=== PATIENT | female | born 1990 | race Caucasian/White ===

== ENCOUNTER 2017-01-19 14:29 | Emergency (ER) | payer MEDICAID ==
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
[2017-01-19] MEDS ORDERED: OLANZapine 10 MG/2 ML VIAL IM ONE (15:06)
[2017-01-19 16:03] LABS: % IMMATURE GRANULYOCYTES 0.2 % (0.0-1.1); ABSOLUTE IMMATURE GRANULOCYTES 0.02 10^3/uL (0.00-0.10); ADD DIFF? NO; ADD MORPH? NO; ADD SCAN? NO; ATYPICAL LYMPHOCYTE FLAG 0 (0-99); FRAGMENT RBC FLAG 0 (0-99); HEMATOCRIT 47.4 % (38.0-47.0); HEMOGLOBIN 16.5 g/dL (12.6-16.3); LEFT SHIFT FLG 0 (0-99); LIPEMIA HEMOLYSIS FLAG 90 (0-99); MEAN CELL HEMOGLOBIN 33.3 pg (27.9-34.1); MEAN CELL HEMOGLOBIN CONCENTR. 34.8 g/dL (32.4-36.7); MEAN CELL VOLUME 95.8 fL (81.5-99.8); MEAN PLATELET VOLUME 9.3 fL (8.7-11.7); PLATELET CLUMPS FLAG 0 (0-99); PLATELET COUNT 204 10^3/uL (150-400); RED BLOOD CELL COUNT 4.95 10^6/uL (4.18-5.33)
[2017-01-19 16:51] LABS: ANION GAP 18 mEq/L (8-16); CALCIUM 9.8 mg/dL (8.5-10.4); CARBON DIOXIDE 17 mEq/l (22-31); CHLORIDE 104 mEq/L (97-110); CREATININE 0.8 mg/dL (0.6-1.0); ETHANOL SERUM < 10 mg/dL (0-10); GLOMERULAR FILTRATION RATE > 60; GLUCOSE 85 mg/dL (70-100); POTASSIUM 3.9 mEq/L (3.5-5.2); SODIUM 139 mEq/L (134-144)
[2017-01-19] MEDS ORDERED: NS 1,000 ML IV ONE (17:00)
[2017-01-19 22:00] VITALS: BP 99/60; PULSE 93; RESP 18; TEMP 98.4; O2SAT 96
== END 2017-01-19 21:57 | disposition home or self-care (01) ==
LOC: EDUNIT#
DX: F19.10 Other psychoactive substance abuse, uncomplicated (principal); F17.200 Nicotine dependence, unspecified, uncomplicated
CPT/HCPCS: G0480

== ENCOUNTER 2017-07-13 08:59 | Inpatient (IN) | payer MEDICAID, OTHER ==
[2017-07-13] MEDS ORDERED: OLANZapine DISINTEGR 5 MG TAB PO ONE (09:48)
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
[2017-07-13 11:32] LABS: PLATELET COUNT 221 10^3/uL (150-400)
[2017-07-16] MEDS ORDERED: MAG HYDROX/AL HYDROX/SIMETH 30 ML UDCUP PO PRN (13:46)
[2017-07-16] MEDS ORDERED: MAGNESIUM HYDROXIDE 30 ML UDCUP PO PRN (13:46)
[2017-07-16] MEDS ORDERED: ACETAMINOPHEN 325 MG TAB PO PRN (13:46)
[2017-07-16] MEDS ORDERED: PROMETHAZINE HCL 25 MG SUPPR PR PRN (13:48)
[2017-07-16] MEDS ORDERED: IBUPROFEN 600 MG TAB PO PRN (13:48)
[2017-07-16] MEDS ORDERED: LOPERAMIDE HCL 2 MG CAP PO PRN (13:48)
[2017-07-16] MEDS ORDERED: PROMETHAZINE HCL 25 MG TAB PO PRN (13:48)
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
[2017-07-16] MEDS: PARoxetine HCL 10 MG TAB PO SCH (20:46)
--- NOTE | 2017-07-17 08:08 | SOAPPROG ---
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 Patient has restricted affect and requesting assistance in obtaining residential GENE treatment (not covered by Medicaid) No current alcohol or opioid withdrawal symptoms except occasional yawning, scored 2,3 on COWS. Plan: Patient agrees to voluntary treatment Continue Paxil 10mg QHS for depression and PTSD. Discussed risk of defects, miscarriage, bleeding, agitation, SI, bipolar disorder, hyponatremia, drug interactions Discontinue COWS Requested CC contact Medicaid and [facility] regarding respite bed and GENE treatment options SP1-monitor risk of self harm and mood Reviewed handout on Naltrexone for alcohol cravings and preventing relapse on opioids. Patient reports last oxycodone use 72-96 hours ago. Discussed risk of nausea, hepatitis, opioid withdrawal, and blockade of opioid medications. Patient reports she will review handout. 07/17/17 08:13 Subjective: CC: "I need rehab to get off meth" Patient reports feeling depressed and tired today related to homelessness and " I cant function because of the depression and the drugs." Reports using oxycodone, drinking alcohol, and using methamphetamine prior to ER visit. Reports tolerating Paxil without side effects. Reports thoughts of and suicide only when thinking about being homeless and alone. Denies plan/intent to harm self on unit. Denies racing thoughts, irritability, or agitation. Denies nausea, tremors, sweats, chills. Patient reports court hearing for DUI and other charges, is in early July. Reports previously attending an intake appointment at [facility] but 1st individual therapy appointment was scheduled for today 07/17/17. Objective: Vital Signs Temp Pulse Resp BP Pulse Ox 36.8 C 74 14 97/56 L 95 07/17/17 06:00 07/17/17 06:00 07/17/17 06:00 07/17/17 06:00 07/17/17 06:00 Patient attending some groups. Slept overnight. COWS scores 2,3 yesterday. Alert WF with glasses and tattoos. Guarded with evasive, circumstantial answers. Speech soft, RRR, few words. Mood 'depressed because I can't function when I'm doing drugs, I have no place to go.' Affect restricted. Reports thoughts of and suicide when thinking about homelessness but denies plan or intent to harm self. No evident delusions or AH. Insight limited. Judgment questionable. - Time Spent With Patient Time Spent With Patient: 30 minutes - Pending Discharge Pending Discharge Within 24 Hours: No Pending Discharge Within 48 Hours: Yes Pending Discharge Date: 07/19/17 Pending Discharge Time: 11:00 ICD10 Worksheet Patient Problems: Problems Problem Status Onset Legal problem Acute Methamphetamine use disorder, moderate Acute Personality disorder Acute Posttraumatic stress disorder Acute Substance or medication-induced depressive disorder Acute Suicidal behavior with attempted self-injury Acute
[2017-07-17] MEDS ORDERED: hydrOXYzine HCL 25 MG TAB PO PRN (10:26)
[2017-07-17] MEDS: NICOTINE POLACRILEX 2 MG GUM B PRN (10:58)
[2017-07-17 13:47] LABS: GC AMPLIFICATION GENPROBE POSITIVE (NEGATIVE)
[2017-07-17] MEDS ORDERED: AZITHROMYCIN 250 MG TAB PO ONE (15:54)
[2017-07-17] MEDS ORDERED: cefTRIAXone 250 MG VIAL IM ONE (15:54)
--- NOTE | 2017-07-17 16:02 | SOAPPROG ---
SOAP Progress Note Assessment/Plan: Assessment: Gonorrhea. * Will treat with single dose of IM ceftriaxone 250 mg and single dose of oral azithromycin 1000 mg. * Test for HIV. * Hold hydroxyzine today due to interaction with azithromycin, with risk for prolonged QT interval. 07/17/17 16:01 Subjective: Labs reviewed. Objective: Vital Signs Temp Pulse Resp BP Pulse Ox 36.8 C 74 14 97/56 L 95 07/17/17 06:00 07/17/17 06:00 07/17/17 06:00 07/17/17 06:00 07/17/17 06:00 ICD10 Worksheet Patient Problems: Problems Problem Status Onset Legal problem Acute Methamphetamine use disorder, moderate Acute Personality disorder Acute Posttraumatic stress disorder Acute Substance or medication-induced depressive disorder Acute Suicidal behavior with attempted self-injury Acute
[2017-07-17] MEDS: PARoxetine HCL 10 MG TAB PO SCH ×2 (20:40→21:33)
[2017-07-18] MEDS ORDERED: PROPRANOLOL HCL 10 MG TAB PO PRN (08:22)
[2017-07-18] MEDS ORDERED: PARoxetine HCL 10 MG TAB PO SCH (13:26)
--- NOTE | 2017-07-18 13:44 | SOAPPROG ---
SOAP Progress Note Assessment/Plan: Assessment: Stimulant Related Depressive Disorder Post-Traumatic Stress Disorder Alcohol, Stimulant, Opioid Use Disorders Homeless, no income, legal stressors (reports court hearing early July 2017), no supports Malingering to obtain MH/GENE services and avoid homelessness Patient admitted for SI in context of substance abuse, homelessness, and pending court hearing for DUI and other charges. Patient has restricted affect and requesting assistance in obtaining residential GENE treatment (not covered by Medicaid) or respite bed (none available). No current alcohol or opioid withdrawal symptoms. Recent treatment at [facility] ([phone]) and [facility] in [place]. Patient reports excessive sedation from 10mg Paxil, may be slow metabolizer or prone to fatigue related to methamphetamine withdrawal. Plan: Patient agrees to voluntary treatment Discontinue Paxil. Start Zoloft 12.5mg (1/2 of 25mg) for depression and PTSD. Reviewed ABDI handout, discussed risk of GI side effects, defects, miscarriage, bleeding, drug interactions, suicidal thoughts, bipolar disorder, agitation Discharge in AM with referrals back to [facility] [phone] and [facility] [phone] Discussed no sexual contact with others until re-tested for Gonorrhea and getting baseline HIV testing at a primary care office Discharge in AM; patient contacting Tamera Cleveland regarding car and will get nursing home information, CC will assist in helping patient get transportation to a nursing home, [facility] respite bed (if available tomorrow), or indigent GENE treatment program. 07/18/17 13:56 Subjective: CC: "Worried about where I'm going to go" Patient reports refusing Paxil due to fear of excessive sedation after feeling tired yesterday AM. Reports wanting residential substance abuse treatment even though she has no way to pay for residential GENE treatment and Medicaid doesn't cover GENE treatment. Reports in past year getting MH services and respite at [facility] and getting medical care at [facility], both in [place]. Reports previous MH treatment at [facility] in [place] with [facility] involvement several years ago. Reports anxiety and depression regarding homelessness and lack of financial resources and supports. Reports chronic anxiety and wants medication for anxiety but reports Buspar was excessively sedating. Objective: Vital Signs Temp Pulse Resp BP Pulse Ox 37.1 C 74 14 120/60 98 07/18/17 06:30 07/18/17 06:30 07/18/17 06:30 07/18/17 06:30 07/18/17 06:30 Alert WF with tattoos and glasses. Speech RRR. Circumstantial vague and evasive. Mood 'anxious about where I am going to go.' Affect restricted. Thoughts organized. SI only when homeless. No HI, AH or psychotic content. Insight fair. Judgment appropriate regarding needing GENE treatment. Everett Castaneda reports no available respite beds tonight. CC reports patient calling a indigent GENE treatment program for women in [place]. - Time Spent With Patient Time Spent With Patient: 30 minutes - Pending Discharge Pending Discharge Within 24 Hours: Yes Pending Discharge Within 48 Hours: No Pending Discharge Date: 07/19/17 Pending Discharge Time: 11:00 ICD10 Worksheet Patient Problems: Problems Problem Status Onset Legal problem Acute Methamphetamine use disorder, moderate Acute Personality disorder Acute Posttraumatic stress disorder Acute Substance or medication-induced depressive disorder Acute Suicidal behavior with attempted self-injury Acute Acute urogenital gonorrhea Acute
[2017-07-18] MEDS: NICOTINE POLACRILEX 2 MG GUM B PRN ×2 (16:26→17:49)
[2017-07-18 20:28] VITALS: BP 102/63
[2017-07-19] MEDS ORDERED: SERTRALINE HCL 25 MG TAB PO SCH (09:00)
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
[2017-07-19] MEDS: NICOTINE POLACRILEX 2 MG GUM B PRN (09:41)
== END 2017-07-19 11:38 | disposition home or self-care (01) | DRG 880 ==
LOC: BBEH 07-16 11:20
PROVIDERS: ADMIT Psychiatry & Neurology Psychiatry; ATTEND Psychiatry & Neurology Psychiatry
DX: R45.851 Suicidal ideations (principal); F15.24 Other stimulant dependence with stimulant-induced mood disorder; F15.229 Other stimulant dependence with intoxication, unspecified; F11.24 Opioid dependence with opioid-induced mood disorder; F17.210 Nicotine dependence, cigarettes, uncomplicated; F32.9 Major depressive disorder, single episode, unspecified; F43.10 Post-traumatic stress disorder, unspecified; D68.9 Coagulation defect, unspecified; A54.02 Gonococcal vulvovaginitis, unspecified; Z59.0 Homelessness; Z86.718 Personal history of other venous thrombosis and embolism; Z76.5 Malingerer [conscious simulation]
CPT/HCPCS: 80305; G0480; J0696

== ENCOUNTER 2018-02-06 14:06 | Emergency (ER) | payer MEDICAID ==
--- NOTE | 2018-02-06 15:04 | EDPHY ---
H & P Time Seen by Provider: 02/06/18 14:16 HPI/ROS: HPI Headache. Anticoagulated with history of DVTs. . 28-year-old female , estimated 3 months currently, history of factor 5 Leiden deficiency, currently on prophylactic Lovenox prescribed by her primary care physician at [facility]. She presents to the emergency department with complaint of a gradual onset headache, described as frontal and aching, ongoing for 4-5 days. She has had headaches in the past similar to this. However, she states that with her last she had a similar headache to this and was on anticoagulation and developed a bleed on her brain. She states that she thinks she has had more confusion lately but otherwise denies any neurologic symptoms. She currently is in the process of establishing a relationship with a flexographic press operator and OBGYN here in [place]. She is from [place]. ROS: Constitutional: No fever, no chills. No weakness. As above. Eyes: No discharge. No changes in vision. ENT: No sore throat. No nasal congestion or rhinorrhea. Respiratory: No cough. No shortness of breath. Cardiac: No chest pain, no palpitations. Gastrointestinal: No abdominal pain, no vomiting, no diarrhea. Genitourinary: No hematuria. No dysuria or increased frequency with urination. Musculoskeletal: No back pain. No neck pain. No myalgias or arthralgias. Skin: No rashes. Neurological: As above. No focal weakness or altered sensation. Past medical history: Factor 5 Leiden deficiency, DVTs with deep leg vein stents, tonsillectomy, , substance abuse, bipolar, PTSD. Social history: Substance abuse. Nonsmoker. Currently here by herself. Denies alcohol. Physical Exam: General Appearance: Alert, no distress. This patient is responding to questions appropriately and in full sentences. This patient appears well- hydrated and well-nourished. Eyes: Pupils equal and round no pallor or injection. No lid edema, erythema or injection. No nystagmus. No photophobia. Respiratory: There are no retractions, lungs are clear to auscultation with good air movement bilaterally. Cardiovascular: Regular rate and rhythm. No murmur. Gastrointestinal: Abdomen is soft and nontender, no masses, bowel sounds normal. No focal tenderness at McBurney's point. No Crenshaw sign. Neurological: Motor sensory function is grossly intact. Cranial nerves are normal. Gait is normal. Cerebellar function is normal. Speech and cognitive function normal. Skin: Warm and dry, no rashes. Musculoskeletal: Neck is supple and nontender. No pain on flexion of her neck. Extremities are symmetrical. All joints range without pain or impingement. Psychiatric: No agitation. No depression. Database: EKG: Imaging: MRI brain without contrast: No evidence of intracranial bleeding or other significant pathology. Results were discussed with staff radiologist Dr. Jass Fishman. Procedures: Emergency department course: Triage vital signs reviewed and are normal. Secondary to her , CT imaging will not be obtained. She does consent to getting an MRI of her brain without contrast to evaluate for bleeding or other intracranial pathology. 5:15 p.m., patient re-evaluated, resting comfortably at this time. She is feeling better. Vital signs reviewed and are normal. Repeat neurologic Assessment is nonfocal. Results of MRI and blood work discussed with her. This time she feels comfortable going home I feel she is safe for discharge. Follow-up with Hematology as well as OBGYN discussed with her. She is instructed to continue her Lovenox as prescribed for the time being. She is in agreement with this plan. Return to emergency department precautions were reviewed with her thoroughly. All of her questions were answered. She was discharged from the emergency department in good condition. Differential Diagnosis: The differential diagnosis on this patient includes but is not limited to migraine type headache. Preeclampsia, intracranial hemorrhage, meningitis, encephalitis, CVA unlikely. This represents a partial list of diagnoses considered. These considerations are based on history, physical exam, past history, reassessment and diagnostic testing. Smoking Status: Former smoker Constitutional: Initial Vital Signs Temperature (C) 36.7 C 02/06/18 14:10 Heart Rate 96 02/06/18 14:10 Respiratory Rate 16 02/06/18 14:10 Blood Pressure 114/70 02/06/18 14:10 O2 Sat (%) 100 02/06/18 14:10 O2 Delivery Mode Room Air Allergies/Adverse Reactions: haloperidol [From Haldol] Allergy (Verified 02/06/18 14:08) Sulfa (Sulfonamide Antibiotics) Allergy (Verified 10/26/14 14:16) Home Medications: Medication Instructions Recorded Lovenox 11/14/18 Medical Decision Making - Diagnostics Imaging Results: Imaging Impressions Brain MRI 02/06/18 14:51 Impression: No evidence for acute hemorrhage or source for acute headache identified. Results discussed with Dr. Garvey at 4:58 PM. - Data Points Laboratory Results: Laboratory Results 02/06/18 14:57 02/06/18 14:57 02/06/18 02/06/18 02/06/18 14:57 14:57 14:57 WBC RBC Hgb Hct MCV MCH MCHC RDW Plt Count MPV Neut % (Auto) Lymph % (Auto) Graves % (Auto) Eos % (Auto) Baso % (Auto) Nucleat RBC Rel Count Absolute Neuts (auto) Absolute Lymphs (auto) Absolute Monos (auto) Absolute Eos (auto) Absolute Basos (auto) Absolute Nucleated RBC Immature Gran % Immature Gran # PT 12.8 SEC SEC (12.0-15.0) INR 0.94 (0.83-1.16) APTT 28.1 SEC SEC (23.0-38.0) Sodium 138 mEq/L mEq/L (135-145) Potassium 4.3 mEq/L mEq/L (3.3-5.0) Chloride 108 mEq/L mEq/L (97-110) Carbon Dioxide 17 mEq/l L mEq/l (22-31) Anion Gap 13 mEq/L mEq/L (6-14) BUN 13 mg/dL mg/dL (7-23) Creatinine 0.5 mg/dL L mg/dL (0.6-1.0) Estimated GFR > 60 Glucose 82 mg/dL mg/dL (70-100) Calcium 9.4 mg/dL mg/dL (8.5-10.4) Beta HCG, Qual POSITIVE 02/06/18 14:57 WBC 9.85 10^3/uL H 10^3/uL (3.80-9.50) RBC 4.13 10^6/uL L 10^6/uL (4.18-5.33) Hgb 13.7 g/dL g/dL (12.6-16.3) Hct 39.8 % % (38.0-47.0) MCV 96.4 fL fL (81.5-99.8) MCH 33.2 pg pg (27.9-34.1) MCHC 34.4 g/dL g/dL (32.4-36.7) RDW 12.5 % % (11.5-15.2) Plt Count 229 10^3/uL 10^3/uL (150-400) MPV 9.9 fL fL (8.7-11.7) Neut % (Auto) 63.5 % % (39.3-74.2) Lymph % (Auto) 27.4 % % (15.0-45.0) Graves % (Auto) 5.6 % % (4.5-13.0) Eos % (Auto) 2.9 % % (0.6-7.6) Baso % (Auto) 0.4 % % (0.3-1.7) Nucleat RBC Rel Count 0.0 % % (0.0-0.2) Absolute Neuts (auto) 6.25 10^3/uL 10^3/uL (1.70-6.50) Absolute Lymphs (auto) 2.70 10^3/uL 10^3/uL (1.00-3.00) Absolute Monos (auto) 0.55 10^3/uL 10^3/uL (0.30-0.80) Absolute Eos (auto) 0.29 10^3/uL 10^3/uL (0.03-0.40) Absolute Basos (auto) 0.04 10^3/uL 10^3/uL (0.02-0.10) Absolute Nucleated RBC 0.00 10^3/uL 10^3/uL (0-0.01) Immature Gran % 0.2 % % (0.0-1.1) Immature Gran # 0.02 10^3/uL 10^3/uL (0.00-0.10) PT INR APTT Sodium Potassium Chloride Carbon Dioxide Anion Gap BUN Creatinine Estimated GFR Glucose Calcium Beta HCG, Qual Departure - Departure Disposition: Home, Routine, Self-Care Clinical Impression: , Headache Condition: Good Instructions: (ED), Acute Headache (ED) Additional Instructions: Read and follow provided instructions. Follow-up with Hematology and OBGYN as discussed in the next 2-3 days for re- evaluation and ongoing care. Continue your Lovenox as prescribed. Return to the emergency department for return of headache, worsening headache, fever, vomiting or other serious concerns. Referrals: Carol Garner MD [Medical Doctor] - As per Instructions Odilia Mora MD [Medical Doctor] - As per Instructions
[2018-02-06 15:31] LABS: INR 0.94 (0.83-1.16); PROTIME(PATIENT) 12.8 SEC (12.0-15.0)
[2018-02-06 15:43] LABS: PLATELET COUNT 229 10^3/uL (150-400)
[2018-02-06 16:49] VITALS: BP 99/53
== END 2018-02-06 17:15 | disposition home or self-care (01) ==
DX: R51 Headache (principal); O28.0 Abnormal hematological finding on antenatal screening of mother; Z3A.12 12 weeks gestation of pregnancy; Z79.01 Long term (current) use of anticoagulants; Z95.828 Presence of other vascular implants and grafts

== ENCOUNTER → 2018-04-25 | Outpatient (CLI) | payer MEDICAID | LOC: FIMAGING 07:29 | DX: O09.212 Supervision of pregnancy with history of pre-term labor, second trimester (principal); O99.112 Other diseases of the blood and blood-forming organs and certain disorders involving the immune mechanism complicating pregnancy, second trimester; O34.219 Maternal care for unspecified type scar from previous cesarean delivery; D68.2 Hereditary deficiency of other clotting factors; F41.9 Anxiety disorder, unspecified; Z3A.19 19 weeks gestation of pregnancy ==

== ENCOUNTER → 2018-07-15 | Outpatient (CLI) | payer MEDICAID | LOC: FIMAGING 12:38 | DX: O09.213 Supervision of pregnancy with history of pre-term labor, third trimester (principal); D68.2 Hereditary deficiency of other clotting factors; Z3A.31 31 weeks gestation of pregnancy; Z79.01 Long term (current) use of anticoagulants; Z86.718 Personal history of other venous thrombosis and embolism ==